=== PATIENT | male | born 1965 | race Caucasian/White ===

== ENCOUNTER → 2016-11-03 | Outpatient (CLI) | payer BC ==
[2016-11-03 12:26] LABS: ALT 54 U/L (21-72); AST 33 U/L (17-59); Alkaline Phosphatase 98 U/L (38-126); Anion Gap 11 mmol/L; Blood Urea Nitrogen 20 mg/dL (9-20); Calcium 9.5 mg/dL (8.4-10.2); Carbon Dioxide 26 mmol/L (22-30); Chloride 108 mmol/L (98-107); Cholesterol 172 mg/dL (<200); Glucose 98 mg/dL (74-99); HDL Cholesterol 36 mg/dL (40-60); Non-African American GFR(MDRD) >60 (>60 ml/min/1.73 sqM); Potassium 4.5 mmol/L (3.5-5.1); Sodium 145 mmol/L (137-145); Total Bilirubin 0.6 mg/dL (0.2-1.3); Total Protein 7.3 g/dL (6.3-8.2); Triglycerides 158 mg/dL (<150)
== END | disposition home or self-care (01) ==
LOC: LABMAIN 09:01
PROVIDERS: ATTEND Family Medicine
DX: Z00.00 Encounter for general adult medical examination without abnormal findings (principal)
CPT/HCPCS: 36415; 80053; 80061

== ENCOUNTER → 2017-01-16 | Outpatient (CLI) | payer BC ==
--- NOTE | 2017-01-16 17:26 | CONS ---
CONSULTATION DATE OF SERVICE: 01/07/2017. A 51-year-old gentleman who has been evaluated in the sleep center to for obstructive sleep apnea-hypopnea syndrome. HISTORY OF PRESENT ILLNESS/SLEEP WAKE EVALUATION: The patient has been diagnosed with obstructive sleep apnea about 14 years ago. He was started on treatment with CPAP and he stopped using CPAP equipment about 7 years ago. At the present time, his sleep schedule on working days from around 9:00 p.m. to 4:00 a.m. and on weekends from around 10:00 to 11:00 p.m. to 5:00 to 7:00 a.m. Usually no problems with a falling asleep. He has TV set in bedroom. He snores, has witnessed episodes of stopped breathing during the sleep. He wakes up from sleep 2 times with nocturia. He has some kind of jump movements in sleep. Patient does not remember his dreams so it is probably not related to the out of dream movements. In the morning he wakes up tired. [place] Sleepiness Scale significantly increased to 14. PAST MEDICAL HISTORY: Positive for tinnitus, hypertension, acid reflux, shoulder arthritis. PAST SURGICAL HISTORY: Tonsillectomy in 1969. SOCIAL HISTORY: Positive for smoking for around 20 pack years, quit about 11 years ago. Alcohol consumption none at the present time. REVIEW OF SYSTEMS: Awakenings from sleep, sleepiness during the day. No fevers No double vision. No recent chest pain. No shortness of breath. No abdominal pain. No bleeding episodes. No blood in urine. No seizure episodes. FAMILY HISTORY: Angina, heart problems, stroke, arthritis, lung problems, emphysema, liver problems. PHYSICAL EXAM: A 51-year-old gentleman without distress. BP 157/92, HR 82, RR 16, height 6 inches 2, weight 278, BMI 35.5. Neck 18-1/2 inches in circumference. Temperature 98.1, oxygen saturation at room air 96%. HEENT: PERRLA, EOMI. Evaluation of oropharynx showed extremely low position of soft palate. NECK: Supple. No JVD. Thyroid is not palpable. LUNGS: clear to percussion and to auscultation. Good air exchange. No wheezing or rhonchi. HEART: S1, S2 regular. No murmurs, gallops or rubs. ABDOMEN: Abdomen is obese. Soft and nontender. Bowel sounds are present. No organomegaly appreciated. EXTREMITIES: No cyanosis or clubbing. PERFORMING ARTS TECHNICIANS: Awake, alert and oriented x3. Cranial nerves II through VII intact. There is no fasciculation or atrophy noted. No focal deficits observed. IMPRESSION: 1. Snoring, witnessed episodes of stopped breathing during sleep, history of obstructive sleep apnea-hypopnea syndrome in the past, low position of soft palate big neck, excessive sleepiness, obstructive sleep apnea-hypopnea syndrome. 2. Tinnitus. 3. Hypertension. 4. Acid reflux. 5. Shoulder arthritis. 6. Status post tonsillectomy. 7. Obesity, BMI 35.5. PLAN: 1. Polysomnography for evaluation of patient's breathing during sleep. 2. CPAP/BiPAP titration if sleep study confirms obstructive sleep apnea-hypopnea syndrome. 3. Preferable position during sleep on the side. 4. No driving if patient feels any sleepiness. Patient is aware of civil and criminal liability for unsafe driving. 5. I will see the patient for follow-up visit to explain results of the testing and following plan. Thank you very much for allowing me to participate in the management of your patient. Sincerely, Stanley Cardoso MD, PhD, FAASM Diplomat of [place] Board [employer], Sleep Medicine Board by [place] [employer] Specialties [employer] Board of [employer] MMODL / IJN: [id number] /
== END | disposition home or self-care (01) ==
LOC: SLEEP 15:51
PROVIDERS: ATTEND Internal Medicine
DX: G47.33 Obstructive sleep apnea (adult) (pediatric) (principal); I10 Essential (primary) hypertension; H93.19 Tinnitus, unspecified ear; K21.9 Gastro-esophageal reflux disease without esophagitis; M19.019 Primary osteoarthritis, unspecified shoulder; E66.9 Obesity, unspecified; Z68.35 Body mass index [BMI] 35.0-35.9, adult; Z90.89 Acquired absence of other organs; Z87.891 Personal history of nicotine dependence
CPT/HCPCS: 99211

== ENCOUNTER → 2017-05-15 | Outpatient (CLI) | payer BC ==
--- NOTE | 2017-05-15 18:06 | PN ---
PROGRESS NOTE DATE OF SERVICE: 05/15/17 52-year-old gentleman who has been followed in Sleep Center for treatment of obstructive sleep apnea-hypopnea syndrome. Recently patient had home sleep apnea test and CPAP titration and I discussed results of the sleep studies with patient in detail. He has moderate obstructive sleep apnea, which is close to severe range. Subsequently, he was started on treatment with CPAP. He is able to use his equipment every night without significant problems at the present time. He feels better with the machine with relationship to his sleep and feeling during the day. No snoring at night. His likes machine. I checked patient's CPAP unit. Usage is 30/30 nights for more than 4 hours. Average usage is 7.1 hour. Pressure is 11 cm of water. RAMP is 30 minutes. Leak is 18 L/minute which is acceptable. Apnea-hypopnea index for the month is 4.1, which is acceptable range. [place] Sleepiness Scale today is 12. MEDICATIONS ARE: Omeprazole, amlodipine, ibuprofen. PHYSICAL EXAM: Patient in no distress. BP 144/93, HR 83, RR 16, weight 218.6, temp 97.9, oxygen saturation on room air 95%. Oropharynx extremely low position of soft palate. Mallampati 4. Abdomen slightly obese. Neck Supple, no JVD. Thyroid is not palpable. LUNGS Clear to percussion and to auscultation. Good air exchange. No wheezing or rhonchi. HEART S1, S2 regular. No murmurs, gallops, or rubs. ABDOMEN: Obese. Soft and nontender. Bowel sounds are present. No organomegaly appreciated. EXTREMITIES No clubbing or cyanosis. COMMERCIAL GREEN BUILDING DESIGNER Awake, alert, and oriented X3. Cranial nerves 2 to 7 intact. There is no fasciculation or atrophy. noted. No focal deficits observed. IMPRESSION: 1. Moderate close to severe obstructive sleep apnea-hypopnea syndrome; apnea-hypopnea index 28 with oxygen desaturation to 78%, mostly on control with CPAP at 11 cm of water. Patient demonstrated 100% compliance with treatment benefitting from treatment. 2. Hypertension. 3. History of tinnitus. 4. Acid reflux. 5. Shoulder arthritis. 6. Status post tonsillectomy. 7. Obesity. PLAN: 1. Patient will continue to use CPAP equipment every night. 2. Losing weight. 3. Sleep hygiene with regular time in bed for at least 8 hours. 4. No driving if feeling sleepiness. 5. Follow-up visit in 10 months or earlier if the patient has any problems. She will be 1 year since the patient had a sleep study. Thank you very much for allowing me to participate in management of your patient. Sincerely, Stanley Cardoso MD, PhD, FAASM Diplomat of [employer] [employer] Specialties [employer] Board of Internal Medicine Customer Care Consultant of [facility] [place] MMODL / BON: [id number] /
== END | disposition home or self-care (01) ==
LOC: SLEEP 16:12
PROVIDERS: ATTEND Internal Medicine
DX: G47.33 Obstructive sleep apnea (adult) (pediatric) (principal); I10 Essential (primary) hypertension; K21.9 Gastro-esophageal reflux disease without esophagitis; E66.9 Obesity, unspecified; M19.019 Primary osteoarthritis, unspecified shoulder; Z90.89 Acquired absence of other organs; Z86.69 Personal history of other diseases of the nervous system and sense organs; Z79.1 Long term (current) use of non-steroidal anti-inflammatories (NSAID); Z79.899 Other long term (current) drug therapy; Z99.89 Dependence on other enabling machines and devices

== ENCOUNTER → 2018-05-21 | Outpatient (CLI) | payer BC ==
--- NOTE | 2018-05-21 21:48 | PN ---
PROGRESS NOTE DATE OF SERVICE: 05/21/2018 This patient is a 53-year-old gentleman who has been followed in Sleep Center for treatment of obstructive sleep apnea-hypopnea syndrome. The patient successfully continues to use his CPAP equipment every night for the whole night. About 4 months ago, the patient had an episode of chest pain. He was evaluated in the hospital, but cardiac evaluation was negative at that time. No episodes of chest pain since that time. I checked the patient's CPAP unit. CPAP pressure is 11 cm of water. Usage is every night for more than 4 hours. Average usage is 6.7 hours. Leak is 14 L/minute, which is within normal range. Apnea-hypopnea index is only 1.7, which is absolutely perfect. [place] Sleepiness Scale is still slightly increased at 11. MEDICATIONS: 1. Baby aspirin. 2. Toprol. 3. Amlodipine. 4. EpiPen. PHYSICAL EXAMINATION: GENERAL: A pleasant patient in no distress. VITAL SIGNS: BP 144/81, HR 75, RR 14, height 6 feet 2 inches, weight 284.6, body mass index 36.4. Temperature 98.1, oxygen saturation at room air 96%. HEENT: PERRLA, EOMI. Evaluation of oropharynx showed tongue protrudes midline. Low position of soft palate. Mallampati IV. NECK: Supple. No JVD. Thyroid is not palpable. LUNGS: Clear to percussion and to auscultation. Good air exchange. No wheezing or rhonchi. HEART: S1, S2 regular. No murmurs, gallops or rubs. ABDOMEN: Obese. EXTREMITIES: No clubbing or cyanosis. FOLDER HAND: Awake, alert, and oriented X3. Cranial nerves 2 to 7 intact. There is no fasciculation or atrophy. noted. No focal deficits observed. IMPRESSION: 1. Obstructive sleep apnea-hypopnea syndrome. The patient has demonstrated great compliance with treatment, benefitting from treatment. 2. Hypertension. 3. History of episode of chest pain with negative cardiac workup several months ago. 4. History of tinnitus. 5. Acid reflux. 6. Shoulder arthritis. 7. Status post tonsillectomy. 8. Obesity. PLAN: 1. Patient will continue to use CPAP equipment every night for the whole night. 2. Losing weight. 3. Sleep hygiene with regular time in bed for at least 8 hours. 4. No driving if feeling any sleepiness. 5. We will maintain prescriptions for all necessary CPAP supplies, including full-face mask, tubes, filters. 6. Follow-up visit in one year, or earlier if patient has any problems. Thank you very much for allowing me to participate in the management of your patient. Sincerely, Stanley Cardoso MD, PhD, FAASM Diplomat of [employer] Specialties [employer] Board of Internal Medicine Geography Instructor of [facility] [place] MMPILARL / BON: [id number] /
== END | disposition home or self-care (01) ==
LOC: SLEEP 16:09
PROVIDERS: ATTEND Internal Medicine
DX: G47.33 Obstructive sleep apnea (adult) (pediatric) (principal); I10 Essential (primary) hypertension; K21.9 Gastro-esophageal reflux disease without esophagitis; M13.819 Other specified arthritis, unspecified shoulder; E66.9 Obesity, unspecified; Z68.36 Body mass index [BMI] 36.0-36.9, adult; Z86.69 Personal history of other diseases of the nervous system and sense organs; Z90.89 Acquired absence of other organs; Z79.82 Long term (current) use of aspirin; Z99.89 Dependence on other enabling machines and devices

== ENCOUNTER → 2019-04-15 | Outpatient (CLI) | payer BC ==
--- NOTE | 2019-04-15 17:06 | PN ---
PROGRESS NOTE DATE OF SERVICE: 04/15/2019 This patient is a 54-year-old gentleman who has been followed in Sleep Center for treatment of obstructive sleep apnea-hypopnea syndrome. Patient is successfully continuing to use his CPAP equipment. Last time I saw him was about one year ago. He is using the equipment every night for the whole night. No snoring with the machine. [place] Sleepiness Scale today is slightly increased at 12. I checked his CPAP unit. CPAP pressure is 11 cm of water. Usage is 29/30 nights for more for more than 4 hours for the last month. Average usage is 7.6 hours per night. Leak is 7 L/minute, which is perfect. Apnea-hypopnea index is 3.1, which is absolutely normal. MEDICATIONS: Toprol, baby aspirin, amlodipine, EpiPen. PHYSICAL EXAMINATION: GENERAL: A pleasant patient in no distress. VITAL SIGNS: BP 129/77, HR 78, RR 16. Height 6 feet 2 inches. Weight 287, which is 3 pounds more than during the last visit about one year ago, BMI 36.8, temperature 98.5, oxygen saturation at room air 97%. HEENT: PERRLA, EOMI. Evaluation of oropharynx showed tongue protrudes midline. Extremely low position of soft palate. Mallampati IV. NECK: Supple. No JVD. Thyroid is not palpable. LUNGS: Clear to percussion and to auscultation. Good air exchange. No wheezing or rhonchi. HEART: S1, S2 regular. No murmurs, gallops or rubs. ABDOMEN: Obese. EXTREMITIES: No clubbing or cyanosis. BOX WORKER: Awake, alert, and oriented X3. Cranial nerves 2 to 7 intact. There is no fasciculation or atrophy. noted. No focal deficits observed. IMPRESSION: 1. Obstructive sleep apnea-hypopnea syndrome in moderate, close to severe range, with apnea/hypopnea index 28.0 and oxygen desaturation to 78%, subsequently under full control with CPAP therapy. The patient demonstrated practically 100% compliance with treatment, benefitting from treatment. 2. Hypertension. 3. History of tinnitus. 4. Acid reflux. 5. Shoulder arthritis. 6. Status post tonsillectomy. 7. Obesity. PLAN: 1. The patient will continue to use CPAP equipment every night for the whole night. 2. Watching weight. 3. Sleep hygiene with regular time in bed for at least 7-1/2 to 8 hours. 4. No driving if feeling any sleepiness. 5. I will maintain all necessary prescriptions for CPAP supplies, including mask, tube, filters. Thank you very much for allowing me to participate in the management of your patient. Sincerely, Stanley Cardoso MD, PhD, FAASM Diplomat of [place] Board of Medical Specialties [employer] Board of Internal Medicine Liquefaction Plant Operator of [facility] [place] MMODL / BON: [id number] /
== END | disposition home or self-care (01) ==
LOC: SLEEP 16:04
PROVIDERS: ATTEND Internal Medicine
DX: G47.33 Obstructive sleep apnea (adult) (pediatric) (principal); I10 Essential (primary) hypertension; K21.9 Gastro-esophageal reflux disease without esophagitis; E66.9 Obesity, unspecified; M19.019 Primary osteoarthritis, unspecified shoulder; Z87.2 Personal history of diseases of the skin and subcutaneous tissue; Z99.89 Dependence on other enabling machines and devices; Z79.891 Long term (current) use of opiate analgesic; Z79.899 Other long term (current) drug therapy; Z79.82 Long term (current) use of aspirin

== ENCOUNTER → 2020-03-09 | Outpatient (CLI) | payer BC ==
--- NOTE | 2020-03-09 17:28 | SFUN ---
SLEEP CENTER FOLLOW UP NOTE DATE OF SERVICE: 03/09/2020 This patient is a 55-year-old gentleman has been followed in Sleep Center for treatment of obstructive sleep apnea-hypopnea syndrome. The patient successfully continues to use his CPAP machine every night, but sometimes during the night he snores, according to his . [place] Sleepiness Scale today is 7. I checked the patient's CPAP unit. CPAP pressure is 11 cm of water. Usage is 30/30 nights for more than 4 hours. Average usage is 8.7 hours per night. Leak is 10 L/minute. Apnea-hypopnea index is only 0.7, which is absolutely perfect. MEDICATIONS: 1. Amlodipine 5/40 mg once a day. 2. Metoprolol 25 mg once a day. 3. Aspirin 81 mg once a day. 4. Nexium 40 mg once a day. 5. Motrin 800 mg on p.r.n. basis. PHYSICAL EXAMINATION: GENERAL: A pleasant patient in no distress. VITAL SIGNS: BP 154/87, HR 85, RR 15, height 6 feet 2 inches, weight 289.6, temperature 98.5, oxygen saturation at room air 96%. BMI 37.1. HEENT: MEME, EOMI. Evaluation of oropharynx showed tongue protrudes midline. Extremely low position of soft palate. Mallampati IV. NECK: Supple. No JVD. Thyroid is not palpable. LUNGS: Clear to percussion and to auscultation. Good air exchange. No wheezing or rhonchi. HEART: S1, S2 regular. No murmurs, gallops or rubs. ABDOMEN: Obese. EXTREMITIES: No clubbing or cyanosis. PAYMENT REP: Awake, alert, and oriented X3. Cranial nerves 2 to 7 intact. There is no fasciculation or atrophy. noted. No focal deficits observed. IMPRESSION: 1. Obstructive sleep apnea-hypopnea syndrome. Patient demonstrated 100% compliance with treatment, documented 100% compliance with treatment, benefitting from treatment. 2. Hypertension. 3. History of tinnitus. 4. Acid reflux. 5. History of shoulder arthritis. 6. Obesity. 7. Status post tonsillectomy. PLAN: 1. I changed regimen of the machine to Auto with range of pressure from 9 to 14 cm of water. 2. Patient will continue to use PAP equipment every night for the whole night. 3. Sleep hygiene with regular time in bed for at least 7-1/2 to 8 hours. 4. Precautions related to driving. No driving if feeling sleepiness. 5. I will maintain all necessary prescription for PAP supplies including mask, tube, filters. 6. Watching weight. 7. No driving if feeling sleepiness. 8. Follow-up visit in 6 months or earlier if patient has any problems. Thank you very much for allowing me to participate in the management of your patient. Sincerely, Stanley Cardoso MD, PhD, FAASM Diplomat of [place] Board of [employer] Specialties [place] Board of Internal Medicine Data Entry Associate of [facility] [place] MMODL / IJN: [id number] /
== END | disposition home or self-care (01) ==
LOC: SLEEP 15:46
PROVIDERS: ATTEND Internal Medicine
DX: G47.33 Obstructive sleep apnea (adult) (pediatric) (principal); I10 Essential (primary) hypertension; K21.9 Gastro-esophageal reflux disease without esophagitis; E66.9 Obesity, unspecified; Z98.890 Other specified postprocedural states; Z87.39 Personal history of other diseases of the musculoskeletal system and connective tissue; Z99.89 Dependence on other enabling machines and devices; Z79.899 Other long term (current) drug therapy; Z79.891 Long term (current) use of opiate analgesic; Z79.82 Long term (current) use of aspirin; Z87.2 Personal history of diseases of the skin and subcutaneous tissue

== ENCOUNTER → 2020-09-13 | Outpatient (CLI) | payer BC ==
--- NOTE | 2020-09-14 08:46 | SFUN ---
SLEEP CENTER FOLLOW UP NOTE DATE OF SERVICE: 09/13/2020 INTERVAL HISTORY: A 55-year-old gentleman who has been followed in Sleep Center for treatment of obstructive sleep apnea-hypopnea syndrome. The patient continues to use his CPAP equipment every night for the whole night. No snoring with the machine. [place] Sleepiness Scale today is 6, which is in normal range. I checked his CPAP unit. Pressure in the machine in the range 9-14 cm of water. Average 13.1 cm of water, usage 30/30 nights for more than 4 hours with average usage 7.3 hours per night. Leak is 7 L/minute which is very mild. Apnea-hypopnea index is only 1.3, which is totally normal. MEDICATIONS: Ibuprofen 800 mg on a p.r.n. basis, metoprolol 25 mg once a day, omeprazole, amlodipine 5/40 mg once a day, aspirin 81 mg once a day. PHYSICAL EXAMINATION: GENERAL: Patient in no distress. VITAL SIGNS: BP 150/90, HR 84, RR 16, height 6 feet 2 inches, weight 291.4 pounds, body mass index 37.3, temperature 98.4, oxygen saturation at room air 95%. HEENT: PERRLA, EOMI, evaluation of oropharynx showed tongue protrudes midline. Extremely low position of soft palate. Mallampati 4. NECK: Supple, no JVD. Thyroid is not palpable. LUNGS: Clear to percussion and to auscultation. Good air exchange. No wheezing or rhonchi. HEART: S1, S2 regular. No murmurs, gallops, or rubs. ABDOMEN: Obese, soft and nontender. Bowel sounds are present. No organomegaly appreciated. EXTREMITIES: No clubbing or cyanosis. NUCLEAR CRITICALITY SAFETY ENGINEER: Awake, alert, and oriented X3. Cranial nerves 2 to 7 intact. There is no fasciculation or atrophy. noted. No focal deficits observed. IMPRESSION: 1. Obstructive sleep apnea-hypopnea syndrome. The CPAP unit has been checked. The usage is 100% of the time for more than 4 hours with average is 7.3 hours per night with compliance with treatment, benefitting from treatment. 2. Hypertension. 3. History of tinnitus. 4. Acid reflux. 5. Obesity. 6. History of shoulder arthritis. 7. Status post tonsillectomy. PLAN: 1. Patient will continue to use PAP equipment every night for the whole night. 2. Sleep hygiene with regular time in bed for at least 7-1/2 to 8 hours. 3. Precautions related to driving. No driving if feeling sleepiness. 4. I will maintain all necessary prescription for PAP supplies including mask, tube, filters. 5. Watching weight. 6. Follow-up visit in 6 months or earlier if patient has any problems. Thank you very much for allowing me to participate in the management of your patient. Sincerely, Stanley Cardoso MD, PhD, FAASM Diplomat of [place] Board of Medical Specialties Iceland[employer] Board of Internal Medicine Skein Yarn Dyer Helper of [facility] [place] MMODL / IJN: [id number] /
== END ==
LOC: SLEEP 16:28
PROVIDERS: ATTEND Internal Medicine
DX: G47.33 Obstructive sleep apnea (adult) (pediatric) (principal); I10 Essential (primary) hypertension; K21.9 Gastro-esophageal reflux disease without esophagitis; E66.9 Obesity, unspecified; M19.019 Primary osteoarthritis, unspecified shoulder; Z86.69 Personal history of other diseases of the nervous system and sense organs; Z90.89 Acquired absence of other organs; Z79.1 Long term (current) use of non-steroidal anti-inflammatories (NSAID); Z79.899 Other long term (current) drug therapy; Z68.37 Body mass index [BMI] 37.0-37.9, adult

== ENCOUNTER → 2021-03-08 | Outpatient (CLI) | payer BC ==
--- NOTE | 2021-03-09 06:26 | SFUN ---
SLEEP CENTER FOLLOW UP NOTE DATE OF SERVICE: 03/08/2021. 56-year-old gentleman has been followed in Sleep Center for treatment of obstructive sleep apnea-hypopnea syndrome. The patient continues to use his CPAP equipment every night without significant problems. Getting his supplies in time. [place] Sleepiness Scale today is 6, which is normal. I checked his CPAP unit. Range of the pressure 9-14 cm of water. Average pressure 12.2 cm of water. Usage is 30/30 nights for more than 4 hours. Average is 7.5 hours per night. Leak is 8 L/minute only. Apnea-hypopnea index is 1.5 which is perfect. MEDICATIONS: Ibuprofen 800 mg on p.r.n., metoprolol 25 mg once a day, omeprazole, amlodipine once a day, aspirin 81 mg once a day. PHYSICAL EXAMINATION: GENERAL: Patient in no distress. BP 161/81, HR 71, RR 16, height 6 foot 2, weight 276 lbs, body mass index 35.4, temperature 98.3, oxygen saturation at room air 98%. Oropharynx: Extremely low position of soft palate, Mallampati 4. NECK: Supple, no JVD. Thyroid is not palpable. LUNGS: Clear to percussion and to auscultation. Good air exchange. No wheezing or rhonchi. HEART: S1, S2 regular. No murmurs, gallops, or rubs. ABDOMEN: Slightly obese. Soft and nontender. Bowel sounds are present. No organomegaly appreciated. EXTREMITIES: No clubbing or cyanosis. PAYABLE PROCESSOR: Awake, alert, and oriented X3. Cranial nerves 2 to 7 intact. There is no fasciculation or atrophy. noted. No focal deficits observed. IMPRESSION: 1. Obstructive sleep apnea-hypopnea syndrome. The patient demonstrated great compliance with treatment benefitting from treatment. Normal respiration on CPAP. 2. Hypertension. 3. History of tinnitus. 4. Acid reflux. 5. Obesity. 6. History of shoulder arthritis. 7. Status post tonsillectomy. PLAN: 1. Patient will continue to use PAP equipment every night for the whole night. 2. Sleep hygiene with regular time in bed for at least 7-1/2 to 8 hours. 3. Precautions related to driving. No driving if feeling sleepiness. 4. I will maintain all necessary prescription for PAP supplies including mask, tube, filters. 5. Watching weight. 6. Follow-up visit in 6 months or earlier if patient has any problems. Thank you very much for allowing me to participate in management of your patient. Sincerely, Stanley Cardoso MD, PhD, FAASM Diplomat of [place] [employer] Specialties Sleep Medicine Board of [place] Board of Internal Medicine Water Truck Driver of [facility] [place] MMSRIDHAR / VILMA: [id number] /
== END ==
LOC: SLEEP 15:56
PROVIDERS: ATTEND Internal Medicine
DX: G47.33 Obstructive sleep apnea (adult) (pediatric) (principal); I10 Essential (primary) hypertension; K21.9 Gastro-esophageal reflux disease without esophagitis; E66.9 Obesity, unspecified; Z90.09 Acquired absence of other part of head and neck; Z86.69 Personal history of other diseases of the nervous system and sense organs; Z87.39 Personal history of other diseases of the musculoskeletal system and connective tissue; Z99.89 Dependence on other enabling machines and devices; Z68.35 Body mass index [BMI] 35.0-35.9, adult; Z79.899 Other long term (current) drug therapy

== ENCOUNTER → 2022-03-07 | Outpatient (CLI) | payer BC ==
--- NOTE | 2022-03-07 15:48 | P.PN ---
Subjective DATE: 03/07/2022 FOLLOW UP VISIT. Patient with obstructive sleep apnea hypopnea syndrome return to sleep center for follow-up visit. Information from previous visit have been reviewed. Patient is using PAP equipment every night for the whole night, getting PAP supplies in time. The patient does not have significant problems with the mask, PAP unit and humidification. [place] sleepiness scale is 3, which is normal. I checked information from PAP unit. PAP unit pressure 9-14, average 12.9 cm H2O. Usage is 100 % for more then 4 hours, average 7.4 hours per night. Leak is 7 l/m, which is in acceptable range. Apnea Hypopnea Index is 2.3, which is normal. MEDICATIONS:1. Amlodipine 2. Aspirin 3. Metoprolol 25 mg twice a day 4. Omeprazole once a day 5. Motrin 800 mg as needed During physical exam: GENERAL: A pleasant patient without any distress. VITAL SIGNS: BP 126/74, HR 75, RR 16 , weight 251.0, patient lost about 25 pounds since previous visit, temperature 97.4, oxygen saturation at room air 97 % . HEENT: PERRLA, EOMI.low position of soft palate, Mallapati 4 . NECK: Supple. No JVD. LUNGS: Clear to percussion and to auscultation. Good air exchange. No wheezing or rhonchi. HEART: S1, S2 regular. ABDOMEN: Soft and nontender. Slightly obese EXTREMITIES: No clubbing or cyanosis. CANDY SEPARATOR ENROBING: Awake, alert, and oriented x3. No focal deficit. Impressions: 1. Obstructive sleep apnea-hypopnea syndrome. Patient demonstrated great compliance with treatment, benefiting from treatment. 2. Hypertension. 3. Tinnitus. 4. Acid reflux. 5. Obesity. 6. History of shoulder arthritis. 7. Status post tonsillectomy. Plan: 1. Continue using PAP equipment every night for the whole night. 2. To change air filter at least 1-2 times per month. 3. PAP unit should stay lower then position of the head. 4. Advised patient to remove all remaining water from humidifier canister daily and make it dry after each usage. Refill canister with fresh distilled water before each usage. 5. Sleep hygiene with regular time in bed for at least 8 hours. 6. Precautions related to driving. No driving if feel any sleepiness. 7. I will maintain prescription for PAP supplies including mask, tube, filters. 8. Follow up visit in 6 months or earlier if patient has any problems. 9. Watching and continue losing weight. Thank you very much for allowing me to participate in the management of your patient. Stanley Cardoso MD, PhD, FAASM. Diplomat of [employer] Board [employer] Medicine, Sleep Medicine Board by [employer] Board of [employer] Medicine Mincing Machine Operator of [facility] [place]
== END ==
LOC: SLEEP 15:12
PROVIDERS: ATTEND Internal Medicine
DX: G47.33 Obstructive sleep apnea (adult) (pediatric) (principal); I10 Essential (primary) hypertension; K21.9 Gastro-esophageal reflux disease without esophagitis; E66.9 Obesity, unspecified; Z79.899 Other long term (current) drug therapy; Z79.82 Long term (current) use of aspirin; Z90.89 Acquired absence of other organs; Z87.39 Personal history of other diseases of the musculoskeletal system and connective tissue; Z99.89 Dependence on other enabling machines and devices; H93.19 Tinnitus, unspecified ear
CPT/HCPCS: 99212

== ENCOUNTER → 2022-09-18 | Outpatient (CLI) | payer BC ==
--- NOTE | 2022-09-18 16:24 | P.PN ---
Subjective DATE: 09/18/2022 FOLLOW UP VISIT. Patient with obstructive sleep apnea hypopnea syndrome return to sleep center for follow-up visit. Information from previous visit have been reviewed. Patient is using PAP equipment every night for the whole night, getting PAP supplies in time. The patient does not have significant problems with the mask, PAP unit and humidification. [place] sleepiness scale is 4, which is normal. I checked information from PAP unit. PAP unit pressure 9-14, average 12.5 cm H2O. Usage is 100 % for more then 4 hours, average 6.9 hours per night. Leak is 10 l/m, which is in acceptable range. Apnea Hypopnea Index is 1.6, which is normal. MEDICATIONS:1. Metoprolol 25 mg twice a day 2. Omeprazole 3. Amlodipine 4. Aspirin 5. [] 6. [] 7. [] 8. [] During physical exam: GENERAL: A pleasant patient without any distress. VITAL SIGNS: BP 141/77, HR 85, RR 16, weight 263.4, temperature 98.3, oxygen saturation at room air 97 % . HEENT: PERRLA, EOMI.low position of soft palate, Mallapati 4 . NECK: Supple. No JVD. LUNGS: Clear to percussion and to auscultation. Good air exchange. No wheezing or rhonchi. HEART: S1, S2 regular. ABDOMEN: Soft and nontender.[] EXTREMITIES: No clubbing or cyanosis. POWER HAIR CLIPPER: Awake, alert, and oriented x3. No focal deficit. Impressions: 1. Obstructive sleep apnea-hypopnea syndrome. Patient demonstrated great compliance with treatment, benefiting from treatment. 2. Hypertension. 3. Acid reflux. 4. Mild obesity, BMI 34.6, patient increased his weight on 12 pounds comparing to the previous visit. 5. History of shoulder arthritis. 6. History of tinnitus. 7. Status post tonsillectomy. Plan: 1. Continue using PAP equipment every night for the whole night. 2. To change air filter at least 1-2 times per month. 3. PAP unit should stay lower then position of the head. 4. Advised patient to remove all remaining water from humidifier canister daily and make it dry after each usage. Refill canister with fresh distilled water before each usage. 5. Sleep hygiene with regular time in bed for at least 8 hours. 6. Precautions related to driving. No driving if feel any sleepiness. 7. I will maintain prescription for PAP supplies including mask, tube, filters. 8. Watching and losing weight. 9. Follow up visit in 6 months or earlier if patient has any problems. Thank you very much for allowing me to participate in the management of your patient. Stanley Cardoso MD, PhD, FAASM. Diplomat of [place], Sleep Medicine Board by [place] [employer] Aerospace Engineer Officer [employer] of [facility]
== END ==
LOC: 3 N SLEEP 15:48
PROVIDERS: ATTEND Internal Medicine
DX: G47.33 Obstructive sleep apnea (adult) (pediatric) (principal); I10 Essential (primary) hypertension; K21.9 Gastro-esophageal reflux disease without esophagitis; E66.9 Obesity, unspecified; Z68.34 Body mass index [BMI] 34.0-34.9, adult; Z99.89 Dependence on other enabling machines and devices; Z87.39 Personal history of other diseases of the musculoskeletal system and connective tissue; Z86.69 Personal history of other diseases of the nervous system and sense organs; Z98.890 Other specified postprocedural states; Z79.899 Other long term (current) drug therapy
CPT/HCPCS: 99212

== ENCOUNTER → 2023-04-16 | Outpatient (CLI) | payer BC ==
--- NOTE | 2023-04-16 15:47 | P.PN ---
Subjective DATE: 04/16/2023 FOLLOW UP VISIT. Patient with obstructive sleep apnea hypopnea syndrome return to sleep center for follow-up visit. Information from previous visit have been reviewed. Patient is using PAP equipment every night for the whole night, getting PAP supplies in time. The patient does not have significant problems with the mask, PAP unit and humidification. [place] sleepiness scale is 3. I checked information from PAP unit. PAP unit pressure 9-14, average 12.2 cm H2O. Usage is 100 % for more then 4 hours, average 7.6 hours per night. Leak is 14 l/m, which is in acceptable range. Apnea Hypopnea Index is 1.3, which is normal. MEDICATIONS:1. Hydrochlorothiazide 12.5 mg once a day 2. Metoprolol 50 mg once a day 3. Amlodipine/benazepril 50-20 mg twice a day 4. Aspirin 81 mg once a day 5. Esomeprazole 40 mg once a day During physical exam: GENERAL: A pleasant patient without any distress. VITAL SIGNS: BP 130/83, HR 84, RR 12 , weight to 84.2, temperature 98.1, oxygen saturation at room air 96 % . HEENT: PERRLA, EOMI.low position of soft palate, Mallapati 4 . NECK: Supple. No JVD. LUNGS: Clear to percussion and to auscultation. Good air exchange. No wheezing or rhonchi. HEART: S1, S2 regular. ABDOMEN: Soft and nontender.[] EXTREMITIES: No clubbing or cyanosis. PURCHASING BUYER: Awake, alert, and oriented x3. No focal deficit. Impressions: 1. Obstructive sleep apnea-hypopnea syndrome. Patient demonstrated great compliance with treatment, benefiting from treatment. 2. Obesity, BMI 35.4, patient increased weight and 21 pounds comparing with previous visit. 3. Hypertension. 4. Acid reflux. 5. Tinnitus. 6. History of shoulder arthritis. 7. Status post tonsillectomy. Plan: 1. Continue using PAP equipment every night for the whole night. 2. To change air filter at least 1-2 times per month. 3. PAP unit should stay lower then position of the head. 4. Advised patient to remove all remaining water from humidifier canister daily and make it dry after each usage. Refill canister with fresh distilled water before each usage. 5. Sleep hygiene with regular time in bed for at least 8 hours. 6. Precautions related to driving. No driving if feel any sleepiness. 7. I will maintain prescription for PAP supplies including mask, tube, filters. 8. Follow up visit in 6 months or earlier if patient has any problems. 9. Watching and losing weight. Thank you very much for allowing me to participate in the management of your patient. Stanley Cardoso MD, PhD, FAASM. Diplomat of [place] [employer], Sleep Medicine Board by [employer] Medical Records Administrator of [facility] [place]
== END ==
LOC: 3 N SLEEP 14:53
PROVIDERS: ATTEND Internal Medicine
DX: G47.33 Obstructive sleep apnea (adult) (pediatric) (principal); E66.9 Obesity, unspecified; I10 Essential (primary) hypertension; K21.9 Gastro-esophageal reflux disease without esophagitis; H93.19 Tinnitus, unspecified ear; Z68.35 Body mass index [BMI] 35.0-35.9, adult; Z98.890 Other specified postprocedural states; Z87.39 Personal history of other diseases of the musculoskeletal system and connective tissue; Z90.89 Acquired absence of other organs; Z99.89 Dependence on other enabling machines and devices; Z79.899 Other long term (current) drug therapy; Z79.82 Long term (current) use of aspirin
CPT/HCPCS: 99212

== ENCOUNTER 2023-10-11 14:17 | Observation (INO) | payer BC ==
--- NOTE | 2023-10-11 15:23 | ED ---
Neuro HPI - General Chief Complaint: Neuro Symptoms/Deficit Stated Complaint: Dizziness Time Seen by Provider: 10/11/23 14:49 Source: patient, RN notes reviewed, old records reviewed Mode of arrival: wheelchair Limitations: no limitations - History of Present Illness Is the patient presenting with stroke symptoms?: Yes -: minutes(s) Initial Comments: This is a 58-year-old male to the ER for evaluation of room spinning near syncopal event was occurring prior to arrival. Patient was shopping when he f elt a snap in his neck and symptoms began, they have been persistent at home and patient presents to the ER for evaluation of possible stroke severe neck pain severe headache Location: ataxia History of same: No Place: home Severity: severe Quality: improving Improves With: none Worsens With: none Context: sudden onset Associated Symptoms: vertigo Treatments Prior to Arrival: none - Related Data Home Medications: Home Medications Medication Instructions Recorded Confirmed Ammonium Lactate Lotion 1 applic TOPICAL DAILY PRN 10/11/23 10/11/23 [Lac-Hydrin 12% Lotion] Aspirin EC [Ecotrin Low Dose] 81 mg PO HS 10/11/23 10/11/23 Esomeprazole Magnesium [NexIUM] 40 mg PO DAILY 10/11/23 10/11/23 Meloxicam [Mobic] 7.5 mg PO DAILY 10/11/23 10/11/23 Metoprolol Succinate (ER) [Toprol 50 mg PO DAILY 10/11/23 10/11/23 XL] amLODIPine BESYLATE/BENAZEPRIL 1 cap PO DAILY 10/11/23 10/11/23 [Lotrel 5-20 mg Capsule] hydroCHLOROthiazide 12.5 mg PO DAILY 10/11/23 10/11/23 Previous Rx's Medication Instructions Recorded Atorvastatin [Lipitor] 20 mg PO HS 30 Days #30 tab 10/13/23 Clopidogrel [Plavix] 75 mg PO DAILY 21 Days #21 tablet 10/13/23 Allergies/Adverse Reactions: Allergies Allergy/AdvReac Type Severity Reaction Status Date / Time clarithromycin [From Biaxin] Allergy Chills and Verified 10/11/23 17:39 cold sweats bee stings Allergy Anaphylaxis Uncoded 10/11/23 17:39 bioxin Allergy Unknown Uncoded 10/11/23 17:39 Review of Systems ROS Statement: Those systems with pertinent positive or pertinent negative responses have been documented in the HPI. ROS Other: All systems not noted in ROS Statement are negative. General Exam - General Exam Comments Initial Comments: NIH is 0 Limitations: no limitations General appearance: alert, in no apparent distress, anxious, in distress Head exam: Present: atraumatic, normocephalic, normal inspection Eye exam: Present: normal appearance, PERRL, EOMI. Absent: scleral icterus, conjunctival injection, periorbital swelling ENT exam: Present: normal exam, mucous membranes moist Neck exam: Present: normal inspection. Absent: tenderness, meningismus, lymphadenopathy Respiratory exam: Present: normal lung sounds bilaterally. Absent: respiratory distress, wheezes, rales, rhonchi, stridor Cardiovascular Exam: Present: regular rate, normal rhythm, normal heart sounds. Absent: systolic murmur, diastolic murmur, rubs, gallop, clicks GI/Abdominal exam: Present: soft, normal bowel sounds. Absent: distended, tenderness, guarding, rebound, rigid Extremities exam: Present: normal inspection, full ROM, normal capillary refill. Absent: tenderness, pedal edema, joint swelling, calf tenderness Back exam: Present: normal inspection Neurological exam: Present: alert, oriented X3, CN II-XII intact Psychiatric exam: Present: normal affect, normal mood Skin exam: Present: warm, dry, intact, normal color. Absent: rash Stroke MDM - Lab Data Result diagrams: 10/11/23 15:27 10/11/23 15:27 Lab Results 10/11/23 10/11/23 10/11/23 Range/Units 15:27 15:27 15:27 WBC 4.7 (3.8-10.6) k/uL RBC 4.41 (4.30-5.90) m/uL Hgb 12.4 L (13.0-17.5) gm/dL Hct 38.0 L (39.0-53.0) % MCV 86.1 (80.0-100.0) fL MCH 28.0 (25.0-35.0) pg MCHC 32.6 (31.0-37.0) g/dL RDW 13.1 (11.5-15.5) % Plt Count 245 (150-450) k/uL MPV 7.2 Neutrophils % 62 % Lymphocytes % 23 % Monocytes % 7 % Eosinophils % 5 % Basophils % 1 % Neutrophils # 2.9 (1.3-7.7) k/uL Lymphocytes # 1.1 (1.0-4.8) k/uL Monocytes # 0.3 (0-1.0) k/uL Eosinophils # 0.2 (0-0.7) k/uL Basophils # 0.0 (0-0.2) k/uL PT 10.2 (10.0-12.5) sec INR 0.9 (<1.2) APTT 22.5 (22.0-30.0) sec Sodium 139 (137-145) mmol/L Potassium 3.9 (3.5-5.1) mmol/L Chloride 109 H (98-107) mmol/L Carbon Dioxide 23 (22-30) mmol/L Anion Gap 7 mmol/L BUN 24 H (9-20) mg/dL Creatinine 1.08 (0.66-1.25) mg/dL Est GFR (CKD-EPI)AfAm 88 (>60 ml/min/1.73 sqM) Est GFR (CKD-EPI)NonAf 76 (>60 ml/min/1.73 sqM) Glucose 147 H (74-99) mg/dL Estimated Ave Glu mg/dL mg/dL Hemoglobin A1c (<=6.0) % Calcium 9.0 (8.4-10.2) mg/dL Total Bilirubin 0.5 (0.2-1.3) mg/dL AST 30 (17-59) U/L ALT 27 (4-49) U/L Alkaline Phosphatase 96 (38-126) U/L Creatine Kinase 107 (55-170) U/L Troponin I (0.000-0.034) ng/mL Total Protein 6.6 (6.3-8.2) g/dL Albumin 3.9 (3.5-5.0) g/dL Triglycerides (0.00-149.00) mg/dL Cholesterol (0.00-200.00) mg/dL LDL Cholesterol, Calc (0.0-131.0) mg/dL VLDL Cholesterol, Calc (5.00-40.00) mg/dL HDL Cholesterol (40.00-60.00) mg/dL Cholesterol/HDL Ratio Ratio TSH (0.465-4.680) mIU/L 10/11/23 10/11/23 10/11/23 Range/Units 15:27 15:27 15:27 WBC (3.8-10.6) k/uL RBC (4.30-5.90) m/uL Hgb (13.0-17.5) gm/dL Hct (39.0-53.0) % MCV (80.0-100.0) fL MCH (25.0-35.0) pg MCHC (31.0-37.0) g/dL RDW (11.5-15.5) % Plt Count (150-450) k/uL MPV Neutrophils % % Lymphocytes % % Monocytes % % Eosinophils % % Basophils % % Neutrophils # (1.3-7.7) k/uL Lymphocytes # (1.0-4.8) k/uL Monocytes # (0-1.0) k/uL Eosinophils # (0-0.7) k/uL Basophils # (0-0.2) k/uL PT (10.0-12.5) sec INR (<1.2) APTT (22.0-30.0) sec Sodium (137-145) mmol/L Potassium (3.5-5.1) mmol/L Chloride (98-107) mmol/L Carbon Dioxide (22-30) mmol/L Anion Gap mmol/L BUN (9-20) mg/dL Creatinine (0.66-1.25) mg/dL Est GFR (CKD-EPI)AfAm (>60 ml/min/1.73 sqM) Est GFR (CKD-EPI)NonAf (>60 ml/min/1.73 sqM) Glucose (74-99) mg/dL Estimated Ave Glu mg/dL 126 mg/dL Hemoglobin A1c 6.0 (<=6.0) % Calcium (8.4-10.2) mg/dL Total Bilirubin (0.2-1.3) mg/dL AST (17-59) U/L ALT (4-49) U/L Alkaline Phosphatase (38-126) U/L Creatine Kinase (55-170) U/L Troponin I <0.012 (0.000-0.034) ng/mL Total Protein (6.3-8.2) g/dL Albumin (3.5-5.0) g/dL Triglycerides 167.00 H (0.00-149.00) mg/dL Cholesterol 180.00 (0.00-200.00) mg/dL LDL Cholesterol, Calc 112.8 (0.0-131.0) mg/dL VLDL Cholesterol, Calc 33.40 (5.00-40.00) mg/dL HDL Cholesterol 33.80 L (40.00-60.00) mg/dL Cholesterol/HDL Ratio 5.33 Ratio TSH 0.451 L (0.465-4.680) mIU/L - NIH Stroke Scale 1a. Level of Consciousness: (0) alert 1b. LOC Questions: (0) answers correctly 1c. LOC Commands: (0) performs tasks correctly 2. Best Gaze: (0) normal 3. Visual: (0) no visual loss 4. Facial Palsy: (0) normal symmetrical movement 5a. Motor Arm Left: (0) no drift 5b. Motor Arm Right: (0) no drift 6a. Motor Leg Left: (0) no drift 6b. Motor Leg Right: (0) no drift 7. Limb Ataxia: (0) absent 8. Sensory: (0) normal 9. Best Language: (0) no aphasia 10. Dysarthria: (0) normal 11. Extinction/Inattention: (0) no abnormality - Thrombolytic Inclusion/Exclusion Thrombolytic Inclusion Criteria: Symptom Onset < 4.5 h, NIH Stroke Scale Deficit (0) - Medical Decision Making 58 male to ER with vertiginous symptoms symptoms are improved here in the ER but he is concerned for acute CVA. Patient had a snap in his neck prior to arrival all symptoms are generally improved here in the ER but he still feels off - Radiology Data Radiology results: report reviewed (CT Brain CT angio head and neck negative for acute disease), image reviewed - EKG Data -: EKG Interpreted by Me (EKG shows sinus 61 OH 122 QRS 92 QTc 461) Past Medical History Past Medical History: Hypertension Additional Past Surgical History / Comment(s): Tube in ear (August 2023) Past Psychological History: No Psychological Hx Reported Smoking Status: Never smoker Past Alcohol Use History: None Reported Past Drug Use History: None Reported Course Vital Signs 10/11/23 10/11/23 10/11/23 14:32 15:15 15:30 Temperature 97.9 F Pulse Rate 57 L 61 60 Respiratory 16 18 18 Rate Blood Pressure 143/83 123/73 130/76 O2 Sat by Pulse 97 95 98 Oximetry 10/11/23 10/11/23 10/11/23 15:45 16:15 16:45 Temperature Pulse Rate 62 71 74 Respiratory 18 18 18 Rate Blood Pressure 127/80 134/80 120/71 O2 Sat by Pulse 98 99 96 Oximetry 10/11/23 10/11/23 10/11/23 17:00 18:00 18:49 Temperature Pulse Rate 74 70 67 Respiratory 18 18 18 Rate Blood Pressure 122/77 139/81 124/77 O2 Sat by Pulse 96 97 97 Oximetry 10/11/23 19:00 Temperature Pulse Rate 66 Respiratory 18 Rate Blood Pressure 128/77 O2 Sat by Pulse 96 Oximetry - Reevaluation(s) Reevaluation #1: Medical records reviewed No tPA Secondary to negative NIH Reevaluation #2: Patient symptoms unchanged Reevaluation #3: Patient informed of results questions answered Reevaluation #4: Was pt. sent in by a medical professional or institution (, PA, MORTAR MAKER, urgent care, hospital, or penitentiary...) When possible be specific @ -no Did you speak to anyone other than the patient for history (EMS, parent, family, police, friend...)? What history was obtained from this source @ -no Did you review nursing and triage notes (agree or disagree)? Why? @ -agree Are old charts reviewed (outside hosp., previous admission, EMS record, old EKG, old radiological studies, urgent care reports/EKG's, penitentiary records)? Report findings @ -yes Differential Diagnosis (chest pain, altered mental status, abdominal pain women, abdominal pain men, vaginal bleeding, weakness, fever, dyspnea, syncope, headache, dizziness, GI bleed, back pain, seizure, CVA, palpatations, mental health, musculoskeletal)? @ -prior EKG interpreted by me (3pts min.). @ -yes X-rays interpreted by me (1pt min.). @ -yes negative for acute disease CT interpreted by me (1pt min.). @ -Negative for acute disease U/S interpreted by me (1pt. min.). @ -no What testing was considered but not performed or refused? (CT, X-rays, U/S, labs)? Why? @ -none What meds were considered but not given or refused? Why? @ -none Did you discuss the management of the patient with other professionals (professionals i.e. Dr., PA, MORTAR MAKER, lab, RT, psych nurse, licensed social worker, sonar watchstander, teacher, parachute officer, telephonic nurse case manager)? Give summary @ -no Was smoking cessation discussed for >3mins.? @ -no Was critical care preformed (if so, how long)? @ -yes31 Were there social determinants of health that impacted care today? How? (Homeles sness, low income, unemployed, alcoholism, drug addiction, transportation, low edu. Level, literacy, decrease access to med. care, halfway, rehab)? @ -none Was there de-escalation of care discussed even if they declined (Discuss DNR or withdrawal of care, Hospice)? DNR status @ -no What co-morbidities impacted this encounter? (DM, HTN, Smoking, COPD, CAD, Cancer, CVA, ARF, Chemo, Hep., AIDS, mental health diagnosis, sleep apnea, morbid obesity)? @ -none Was patient admitted / discharged? Hospital course, mention meds given and route, prescriptions, significant lab abnormalities, going to OR and other 58 male to ER with vertiginous symptoms symptoms are improved here in the ER but he is concerned for acute CVA. Patient had a snap in his neck prior to arrival all symptoms are generally improved here in the ER but he still feels off Admitted Undiagnosed new problem with uncertain prognosis? @ -no Drug Therapy requiring intensive monitoring for toxicity (Heparin, Nitro, Insulin, Cardizem)? @ -no Were any procedures done? @ -no Diagnosis/symptom? @ -TIA TIA vertigo Acute, or Chronic, or Acute on Chronic? @ -Acute Uncomplicated (without systemic symptoms) or Complicated (systemic symptoms)? @ -Complicated Side effects of treatment? @ -no Exacerbation, Progression, or Severe Exacerbation? @ -exacerbation Poses a threat to life or bodily function? How? (Chest pain, [place], [place], pneumonia, PE, COPD, DKA, ARF, appy, cholecystitis, CVA, Diverticulitis, Homicidal, Suicidal, threat to staff... and all critical care pts) @ -yes possible CVA,TIA vertigo Reevaluation #5: Differential CVA Ischemic stroke, hemorrhagic stroke, brain tumor, atypical migraine, Wernicke's encephalopathy, seizure, multiple sclerosis, meningitis, encephalitis, hypoglycemia, Guillain-Gold, electrolytes disturbance, myasthenia gravis.... This is not meant to be an all-inclusive list - Consultations Consultation #1: Spoke with admitting physicians who agreed to admit this patient Critical Care Time Critical Care Time: Yes Total Critical Care Time: 31 Disposition Clinical Impression: Cerebrovascular accident (CVA), Transient cerebral ischemia, Vertigo Disposition: ADMITTED IP TO THIS [facility] Condition: Stable Is patient prescribed a controlled substance at d/c from ED?: No Time of Disposition: 18:50
[2023-10-11] MEDS: ONDANSETRON 4 MG/2 ML VIAL IVP STA (15:30)
[2023-10-11] MEDS: SODIUM CHLORIDE 0.9% 1,000 ML IV STA (15:30)
[2023-10-11 15:44] LABS: Basophils % (A) 1 %; Eosinophils # (A) 0.2 k/uL (0-0.7); Eosinophils % (A) 5 %; HGB 12.4 gm/dL (13.0-17.5); Lymphocytes # (A) 1.1 k/uL (1.0-4.8); Lymphocytes % (A) 23 %; MCHC 32.6 g/dL (31.0-37.0); MCV 86.1 fL (80.0-100.0); Mean Platelet Volume 7.2; Monocytes # (A) 0.3 k/uL (0-1.0); Monocytes % (A) 7 %; Neutrophils # (A) 2.9 k/uL (1.3-7.7); Neutrophils % (A) 62 %; Platelet Count 245 k/uL (150-450); RBC 4.41 m/uL (4.30-5.90); RDW 13.1 % (11.5-15.5); WBC 4.7 k/uL (3.8-10.6)
[2023-10-11 15:52] LABS: ALT 27 U/L (4-49); AST 30 U/L (17-59); African American GFR (CKD) 88 (>60 ml/min/1.73 sqM); Albumin 3.9 g/dL (3.5-5.0); Alkaline Phosphatase 96 U/L (38-126); Anion Gap 7 mmol/L; Blood Urea Nitrogen 24 mg/dL (9-20); Carbon Dioxide 23 mmol/L (22-30); Chloride 109 mmol/L (98-107); Creatine Kinase 107 U/L (55-170); Glucose 147 mg/dL (74-99); Non-African American GFR(CKD) 76 (>60 ml/min/1.73 sqM); Potassium 3.9 mmol/L (3.5-5.1); Sodium 139 mmol/L (137-145); Total Bilirubin 0.5 mg/dL (0.2-1.3); Total Protein 6.6 g/dL (6.3-8.2)
[2023-10-11 16:00] LABS: INR 0.9 (<1.2); Partial Thromboplastin Time 22.5 sec (22.0-30.0); Prothrombin Time 10.2 sec (10.0-12.5)
--- NOTE | 2023-10-11 16:33 | CT ---
EXAMINATION TYPE: CT brain wo con DATE OF EXAM: 10/11/2023 COMPARISON: 10/11/2023 HISTORY: Walking through store, heard a "snap" in his head, got really dizzy, started to get a headac he, light headed, weakness. CT DLP: Combined DLP of 2221.[address] of the brain was performed. The ventricles, basal cisterns and sulci overlying the cerebral convexities demonstrate mild enlargem ent. There is no evidence for intracranial hemorrhage or sulcal effacement. There is decreased attenuation about the periventricular white matter and deep white matter of both c erebral hemispheres, compatible with chronic small vessel ischemia. Differential diagnosis does inclu de demyelination. No mass effects are seen.No midline shift. Osseous calvarium is intact. If symptoms persist consider MRI. IMPRESSION: 1. Age related atrophic and chronic small vessel ischemic change without acute intracranial process s een at this time.
--- NOTE | 2023-10-11 17:48 | CT ---
EXAMINATION TYPE: CT angio head neck DATE OF EXAM: 10/11/2023 COMPARISON: None HISTORY: Walking through store, heard a "snap" in his head, got really dizzy, started to get a headac he, light headed, weakness. CT DLP: Combined DLP of 2221.5 mGycm CONTRAST: Performed with IV Contrast, patient injected with 65 cc mL of Isovue 370. Combination Contrast CTA cervical carotids and [place] CTA cervical carotids with 3-D recons truction Contrast CTA of the cervical carotids was performed 3-D reconstruction imaging obtained at a separate workstation. Right carotid system: Mild plaque is seen of the right common carotid artery. There is mild plaque a lso noted at the carotid bulb and proximal ICA. No significant diameter reduction. ECA is patent. Right vertebral artery appears unremarkable. Left carotid system: Mild plaque is seen of the left common carotid artery. There is mild plaque als o noted at the carotid bulb and proximal ICA. No significant diameter reduction. ECA is patent. Lef t vertebral artery appears unremarkable. IMPRESSION: 1. No significant diameter reduction to account for the patient's symptoms. CTA [place] with 3-D reconstruction Contrast CTA of the [place] was performed 3-D reconstruction imaging obtained at a separate workstation. Vertebrobasilar system as well as intracranial portions of the internal carotid arteries and their ma apolinar tributaries are patent. I do not see evidence for sizable aneurysm or vascular malformation. Pl ease note MRI provides greater sensitivity and specificity. Visualized brain appears grossly unremar kable. IMPRESSION: 1. No significant abnormality. NASCET criteria was used in interpretation of this exam?
[2023-10-11] MEDS: ASPIRIN 325 MG TAB PO STA (19:32)
[2023-10-11] MEDS: SODIUM CHLORIDE 0.9% 1,000 ML IV SCH (19:32)
--- NOTE | 2023-10-12 01:08 | P.HPIM ---
History of Present Illness H&P Date: 10/12/23 Chief Complaint: New onset vertigo Patient is a 58-year-old male with hypertension, who presents to the ER with a sudden onset of vertigo. Patient reports that he was at a shopping center with his when around 2 PM he turned his head to the left side and felt a snap which was followed by sudden onset of vertigo. Patient reports that he felt like as if his surroundings are spinning and he also saw wavy lines in his vision. He denies loss of balance or his vision going blurry or dark. Patient reports that he sat down in the chair which seem to have improved vertigo but it never completely stopped. His noticed that after patient reached home he had a droopy right eyelid, mild state of confusion, and incoherent speech lasting for about 4 to 5 hours. Per , there was a fall episode at home. Patient denies injury to the head. Patient denies seizure-like activity, tongue bite, urinary or bowel incontinence. Patient reports no previous episodes of v ertigo. He continues to have episodes of vertigo while at the hospital. Patient had an episode of vertigo after he had a shower but it resolved quickly after he went back to bed. He reports frontal headache but denies nausea and vomiting. Patient reports that he had right ear barotrauma while completing his cerfication for scuba diving in August. He had right ear tympanostomy 3 weeks ago at [facility]. He denies any right ear pain and discharge. He denies any recent upper respiratory tract infection. Patient denies any previous history of CAD and CVA. Patient denies shortness of breath, chest pain, abdominal pain, diarrhea, constipation, urinary urgency/frequency/pain and numbness or weakness in upper and lower extremities. EKG done in the ER shows heart rate of [address] or T wave abnormalities. QTc is 422 and is not prolonged. Normal R wave progression. Overall normal EKG. CT brain shows no evidence for intracranial hemorrhage. Age-related atrophic and chronic small vessel ischemic changes without acute intracranial process. CT angio of the head and neck is unremarkable. The laboratory evaluation shows WBC 4.7, hemoglobin 12.4, hematocrit 38.0, dez telet count 245, PT 10.8, INR 0.9, APTT 22.5, sodium 139, potassium 3.9, chloride 109, bicarb 23, BUN 24, glucose 147, Trop I less than 0.012. Vitals: Tmax 97.9 F, heart rate 66, respiratory 16, blood pressure 128/77, O2 saturation 97% on room air. Review of systems: Pertinent positives and negatives as discussed in HPI, a complete review of systems was performed and all other systems are negative. Social history: Tobacco: Quit 18 years ago, 2 packs/day x 25 years Alcohol: None Recreational drugs: None Travel: None Occupation: None Family History: Mother had a stroke in her 60s Physical examination: Vital signs reviewed General: non toxic, no distress, appears at stated age, obese Derm: no unusual rashes/lesions, warm Head: atraumatic, normocephalic, symmetric Eyes: EOMI, no lid lag, anicteric sclera, pupils equal round reactive to light ENT: Nose and ears atraumatic Neck: No cervical lymphadenopathy, trachea midline, supple Mouth: no lip lesion, mucus membranes moist Cardiovascular: S1S2 reg, no murmur, positive dorsalis pedis pulse bilateral, no edema Lungs: CTA bilateral, no rhonchi, no rales, no accessory muscle use Abdominal: soft, nontender to palpation, no guarding Ext: muscle strength 5 out of 5 in all 4 extremities grossly, no gross muscle atrophy, no contractures, Neuro: CN II-XI grossly intact, no gross focal neuro deficits Psych: Alert, oriented, appropriate affect Assessment/Plan: 58-year-old male with hypertension who presents the ER with a sudden onset of vertigo associated with transient right ptosis, slurred speech and altered mental state, now back to baseline. 1. Transient ischemic attack ABCD score for TIA: [address] brain shows Age-related atrophic and chronic small vessel ischemic changes without acute intracranial process. Ordered echocardiogram to rule out thrombus and cardiac structure abnormality Consult OT and PT Consult speech therapy Continue neurochecks Continue fall precautions Continue aspirin 325 mg daily Continue normal saline 100 cc/h Order orthostatic vitals 2. Vertigo, eustachian tube dysfunction vs TIA Consult neurology Give Zofran 4 mg IVP prn Continue with fall precautions 3. Hyperglycemia Serum glucose level 147 Check HbA1c Started on sliding scale short acting insulin 4. Elevated BUN, likely due to dehydration BUN 24, creatinine 1.08, EGFR 76 Continue with normal saline 100 cc/h Continue monitoring BUN and creatinine 5. Low hemoglobin Hemoglobin 12.4, hematocrit 38.0 Unable to establish baseline Continue monitoring serum hemoglobin *Chronic conditions: Hypertension, GERD Resume home meds Lotrel 5-20 mg 1 capsule p.o. daily Nexium 40 mg p.o. daily DVT prophylaxis: Lovenox 40 mg subcu daily The patient is admitted with an anticipated more than 2 midnight stay for evaluation of TIA CODE STATUS: Full Discussed with: Patient Anticipated discharge place: Home Past Medical History Past Medical History: Hypertension History of Any Multi-Drug Resistant Organisms: None Reported Additional Past Surgical History / Comment(s): Tube in right ear (August 2023) Past Anesthesia/Blood Transfusion Reactions: No Reported Reaction Past Psychological History: No Psychological Hx Reported Smoking Status: Never smoker Past Alcohol Use History: None Reported Past Drug Use History: None Reported Medications and Allergies Home Medications Medication Instructions Recorded Confirmed Type Ammonium Lactate Lotion 1 applic TOPICAL DAILY PRN 10/11/23 10/11/23 History [Lac-Hydrin 12% Lotion] Aspirin EC [Ecotrin Low Dose] 81 mg PO HS 10/11/23 10/11/23 History Esomeprazole Magnesium [NexIUM] 40 mg PO DAILY 10/11/23 10/11/23 History Ibuprofen [Motrin] 800 mg PO BID PRN 10/11/23 10/11/23 History Meloxicam [Mobic] 7.5 mg PO DAILY 10/11/23 10/11/23 History Metoprolol Succinate (ER) [Toprol 50 mg PO DAILY 10/11/23 10/11/23 History Xl] amLODIPine BESYLATE/BENAZEPRIL 1 cap PO DAILY 10/11/23 10/11/23 History [Lotrel 5-20 mg Capsule] hydroCHLOROthiazide 12.5 mg PO DAILY 10/11/23 10/11/23 History Allergies Allergy/AdvReac Type Severity Reaction Status Date / Time clarithromycin [From Biaxin] Allergy Chills and Verified 10/11/23 17:39 cold sweats bee stings Allergy Anaphylaxis Uncoded 10/11/23 17:39 bioxin Allergy Unknown Uncoded 10/11/23 17:39 Physical Exam Vitals: Vital Signs Temp Pulse Pulse Resp BP BP Pulse Ox 10/12/23 00:30 71 16 112/60 97 10/11/23 20:05 97.9 F 63 16 147/85 97 10/11/23 19:00 66 18 128/77 96 10/11/23 18:49 67 18 124/77 97 10/11/23 18:00 70 18 139/81 97 10/11/23 17:00 74 18 122/77 96 10/11/23 16:45 74 18 120/71 96 10/11/23 16:15 71 18 134/80 99 10/11/23 15:45 62 18 127/80 98 10/11/23 15:30 60 18 130/76 98 10/11/23 15:15 61 18 123/73 95 10/11/23 14:32 97.9 F 57 L 16 143/83 97 Intake and Output 10/11/23 10/11/23 10/12/23 14:59 22:59 06:59 Other: Weight 117.934 kg 117.934 kg Results CBC & Chem 7: 10/11/23 15:27 10/11/23 15:27 Labs: Abnormal Lab Results - Last 24 Hours (Table) 10/11/23 10/11/23 Range/Units 15:27 15:27 Hgb 12.4 L (13.0-17.5) gm/dL Hct 38.0 L (39.0-53.0) % Chloride 109 H (98-107) mmol/L BUN 24 H (9-20) mg/dL Glucose 147 H (74-99) mg/dL Thrombosis Risk Factor Assmnt - Choose All That Apply Any of the Below Risk Factors Present?: Yes Each Factor Represents 1 point: Age 41-60 years, Obesity (BMI >25) Other Risk Factors: No Other congenital or acquired thrombophilia - If yes, enter type in comment: No Thrombosis Risk Factor Assessment Total Risk Factor Score: 2 Thrombosis Risk Factor Assessment Level: Low Risk
[2023-10-12] MEDS: ENOXAPARIN 40 MG/0.4 ML SYRINGE SQ STA (01:43)
[2023-10-12 06:08] LABS: Glucose,Whole Blood 105 mg/dL (70-110)
[2023-10-12] MEDS: INSULIN ASPART (NovoLOG) 100 UNIT/ML VIAL SQ SCH (06:11)
[2023-10-12] MEDS: PANTOPRAZOLE 40 MG TABLET PO SCH (06:25)
[2023-10-12] MEDS: lisinopriL 20 MG TAB PO SCH (08:50)
[2023-10-12] MEDS: amLODIPine 5 MG TAB PO SCH (08:50)
[2023-10-12] MEDS: ASPIRIN 325 MG TAB PO SCH (08:50)
[2023-10-12 11:38] LABS: Glucose,Whole Blood 96 mg/dL (70-110)
[2023-10-12] MEDS ORDERED: bisacodyL 5 MG TABLET.DR PO PRN (13:51)
[2023-10-12] MEDS ORDERED: ONDANSETRON 4 MG/2 ML VIAL IVP PRN (13:51)
[2023-10-12] MEDS ORDERED: MELATONIN 5 MG TABLET PO PRN (13:51)
[2023-10-12] MEDS: ACETAMINOPHEN TAB 325 MG TAB PO PRN (14:08)
[2023-10-12] MEDS: CALCIUM CARBONATE 500 MG CHEWABLE PO PRN (14:09)
--- NOTE | 2023-10-12 16:18 | P.CNNES ---
History of Present Illness Consult date: 10/12/23 Reason for Consult: Stroke/vertigo History of Present Illness: The patient is a 58-year-old male who was seen in neurologic consultation on October 12, 2023, in collaboration with Geovany Rodriguez, via teleneurology. History is obtained from the patient, his was present at the bedside and review of the chart. The patient reports that he was shopping with his . He says that he turned his head to the left and felt a crack in his neck. He then had the sudden onset of dizziness and spinning. He was able to sit down. He did not fall. He was able to make at home and sat down in the chair at home. He apparently had some Gatorade. His states that he attempted to get up and did fall to the floor. There was no loss of consciousness. Patient reportedly knew he was going down and so lowered himself to the floor. Patient's reports that he was very pale and sweaty. He did not lose consciousness. The patient's speech was clear however, some of the answers to questions were not appropriate. He also reportedly had drooping of his right eyelid. In the emergency department, CT scan of the brain was performed. There is no reported evidence of acute hemorrhage or infarct. CT angiogram of the head and neck revealed no significant stenosis, large vessel occlusion or dissection. after being admitted to the hospital, the patient reports that he took a shower, without difficulty however, when he came out of the shower, he noted a zigzag formation in his left peripheral vision. There was no associated headache. This visual abnormality lasted for about 1/2-hour. This morning, the patient reports resolution of his symptoms. He no longer has vertigo. His speech is clear and his right eyelid is no longer improving. The patient reportedly has a history of right ear barotrauma secondary to scuba diving. He recently, 3 weeks ago had a tube placed in his right ear as well as a steroid injection because of possible fluid in the ear. Past Medical History Past Medical History: Hypertension History of Any Multi-Drug Resistant Organisms: None Reported Additional Past Surgical History / Comment(s): Tube in right ear (August 2023) Past Anesthesia/Blood Transfusion Reactions: No Reported Reaction Past Psychological History: No Psychological Hx Reported Smoking Status: Never smoker Past Alcohol Use History: None Reported Past Drug Use History: None Reported Medications and Allergies Home Medications Medication Instructions Recorded Confirmed Type Ammonium Lactate Lotion 1 applic TOPICAL DAILY PRN 10/11/23 10/11/23 History [Lac-Hydrin 12% Lotion] Aspirin EC [Ecotrin Low Dose] 81 mg PO HS 10/11/23 10/11/23 History Esomeprazole Magnesium [NexIUM] 40 mg PO DAILY 10/11/23 10/11/23 History Ibuprofen [Motrin] 800 mg PO BID PRN 10/11/23 10/11/23 History Meloxicam [Mobic] 7.5 mg PO DAILY 10/11/23 10/11/23 History Metoprolol Succinate (ER) [Toprol 50 mg PO DAILY 10/11/23 10/11/23 History Xl] amLODIPine BESYLATE/BENAZEPRIL 1 cap PO DAILY 10/11/23 10/11/23 History [Lotrel 5-20 mg Capsule] hydroCHLOROthiazide 12.5 mg PO DAILY 10/11/23 10/11/23 History Allergies Allergy/AdvReac Type Severity Reaction Status Date / Time clarithromycin [From Biaxin] Allergy Chills and Verified 10/11/23 17:39 cold sweats bee stings Allergy Anaphylaxis Uncoded 10/11/23 17:39 bioxin Allergy Unknown Uncoded 10/11/23 17:39 Physical Examination - Vital Signs Vital Signs: Vital Signs Temp Pulse Pulse Pulse Pulse Pulse Resp 10/12/23 09:25 10/12/23 08:05 64 66 72 10/12/23 07:58 98.0 F 63 64 66 72 18 10/12/23 07:57 98.0 F 63 16 10/12/23 03:30 64 16 10/12/23 00:30 71 16 10/11/23 20:05 97.9 F 63 16 10/11/23 19:00 66 18 10/11/23 18:49 67 18 10/11/23 18:00 70 18 10/11/23 17:00 74 18 10/11/23 16:45 74 18 10/11/23 16:15 71 18 10/11/23 15:45 62 18 10/11/23 15:30 60 18 10/11/23 15:15 61 18 10/11/23 14:32 97.9 F 57 L 16 BP BP BP BP Pulse Ox 10/12/23 09:25 97 10/12/23 08:05 147/88 138/82 134/81 10/12/23 07:58 119/74 97 10/12/23 07:57 119/74 97 10/12/23 03:30 109/60 96 10/12/23 00:30 112/60 97 10/11/23 20:05 147/85 97 10/11/23 19:00 128/77 96 10/11/23 18:49 124/77 97 10/11/23 18:00 139/81 97 10/11/23 17:00 122/77 96 10/11/23 16:45 120/71 96 10/11/23 16:15 134/80 99 10/11/23 15:45 127/80 98 10/11/23 15:30 130/76 98 10/11/23 15:15 123/73 95 10/11/23 14:32 143/83 97 Intake and Output 10/11/23 10/12/23 10/12/23 22:59 06:59 14:59 Intake Total 240 Balance 240 Intake: Oral 240 Other: # Voids 1 Weight 117.934 kg 126.5 kg General: The patient is well-nourished well-developed and in no acute distress HEENT: Head is atraumatic, normocephalic. Fundus not visualized. There is no scleral icterus. Mucous members are moist. Neck: Supple without carotid bruits Heart: Regular rate and rhythm Lungs: Essentially clear to auscultation Extremities: Without edema Neurological examination Mental status: The patient is awake, alert and oriented x 3. Speech is clear. There is no dysarthria or aphasia. Patient is able to accurately repeat phrases and name objects. Cranial nerves: Pupils are equal, round and reactive at 3 mm. Visual luciano are full to confrontation. Extraocular movements are intact. There is no nystagmus. Facial sensation is intact. There is no facial asymmetry. Hearing is grossly intact. Uvula and palate are midline. Shoulder shrug is symmetric. Tongue protrudes midline. Motor: Strength is 5/5 throughout. Sensation: Grossly intact to light touch throughout. There is no extinction with double simultaneous stimulation. Coordination: [id number], rapid alternating movements and [id number] is intact. There is no pronator drift. Deep tendon reflexes: 2-3+/4+ throughout. Plantar responses are flexor bilaterally. Gait: Not assessed Results - Laboratory Findings CBC and BMP: 10/11/23 15:27 10/11/23 15:27 Abnormal Lab Findings: Abnormal Labs 10/11/23 10/11/23 15:27 15:27 Hgb 12.4 L Hct 38.0 L Chloride 109 H BUN 24 H Glucose 147 H Assessment and Plan Assessment: 1. New onset vertigo, possible posterior territory infarct versus TIA versus benign positional vertigo. 2. History of recent ear trauma 3. History of hypertension Plan: 1. Stroke order set has been placed 2. MRI of the brain has been ordered to further evaluate for cerebral ischemia 3. Consider addition of high intensity statin, especially if MRI is positive for stroke 4. Consider dual antiplatelet therapy, if MRI is positive for acute infarct Thank you for allowing us to participate in the care of this patient Dr. Young will assume neurologic coverage of this patient as of October 13, 2023 Time with Patient: Greater than 30 (60 minutes were spent caring for this patient today including, obtaining history, examining the patient, reviewing imaging, chart documentation, labs, placing orders and creating this note)
[2023-10-12 16:27] LABS: Glucose,Whole Blood 142 mg/dL (70-110)
--- NOTE | 2023-10-12 16:36 | P.PN ---
Progress Note - Text Progress Note Date: 10/12/23 (delayed charting seen at 1220) Hospitalist Interval Note Patient seen and examined at bedside. Dizziness is now resolved, has a bit of a headache which is unusual for him. Denies chest pain or shortness of breath. No instances like this before. states that he was speaking clearly but it did not make sense Vital signs reviewed General: Non toxic, no distress, appears at stated age Mouth: No lip lesion, mucus membranes moist Cardiovascular: S1S2 reg, no murmur, positive posterior tibial pulse bilateral, Lungs: CTA bilateral, no rhonchi, no rales, no accessory muscle use Ext: No gross muscle atrophy, no edema, no contractures Neuro: CN II-XI grossly intact, no focal neuro deficits Psych: Alert, oriented, appropriate affect Assessment/Plan: TIA versus CVA versus focal impaired awareness seizure with postictal state -Aspirin 325 mg daily, start Lipitor 80 mg daily -Await neurology recommendations -MRI brain, echocardiogram -Unfortunately patient was not given a chance for permissive hypertension for 24 hours as blood pressure medicines had already been given. Patient chronically on Norvasc 5 mg daily, lisinopril 20 mg daily -Speech consultation for cognition given symptoms. -A1c 6 and no need for repeat -Check lipid panel in a.m. prior to fasting This is an update note for patient , for full note on 10/12/23 see H and P. There is no charge associated with this note.
[2023-10-12 20:20] LABS: Glucose,Whole Blood 118 mg/dL (70-110)
[2023-10-12] MEDS: ATORVASTATIN 80 MG TAB PO SCH (20:39)
[2023-10-13 05:56] LABS: Glucose,Whole Blood 120 mg/dL (70-110)
[2023-10-13] MEDS: ENOXAPARIN 40 MG/0.4 ML SYRINGE SQ SCH (08:18)
[2023-10-13 08:26] VITALS: RESP 16
[2023-10-13 11:47] LABS: Glucose,Whole Blood 116 mg/dL (70-110)
--- NOTE | 2023-10-13 12:17 | CA ---
Transthoracic Echo Report Name: Marilu Patel Age: 58 Gender: M : 1965 Exam Date: 10/13/2023 09:04 Exam Location: [facility] Ht (in): 75 Wt (lb): 260 Ordering Physician: Scott Ruiz DO Attending/Referring Phys: [id number], Joseph Furnace Hand Margot Garcia RDCS Procedure CPT: Indications: Thrombus Cardiac Hx: Technical Quality: Fair Contrast 1: Total Dose (mL): Contrast 2: Total Dose (mL): MEASUREMENTS (Male / Female) Normal Values 2D ECHO LV Diastolic Diameter PLAX 5.8 cm 4.2 - 5.9 / 3.9 - 5.3 cm LV Systolic Diameter PLAX 3.7 cm IVS Diastolic Thickness 1.2 cm 0.6 - 1.0 / 0.6 - 0.9 cm LVPW Diastolic Thickness 1.3 cm 0.6 - 1.0 / 0.6 - 0.9 cm LV Relative Wall Thickness 0.4 RV Internal Dim ED PLAX 1.7 cm Aortic Root Diameter 3.7 cm LA Systolic Diameter LX 4.8 cm 3.0 - 4.0 / 2.7 - 3.8 cm LV Diastolic Volume MOD BP 100.1 cm??? 67 - 155 / 56 - 104 cm??? LV Systolic Volume MOD BP 39.5 cm??? 22 - 58 / 19 - 49 cm??? LV Ejection Fraction MOD BP 60.5 % >= 55 % LV Diastolic Volume MOD 4C 94.4 cm??? LV Systolic Volume MOD 4C 33.0 cm??? LV Ejection Fraction MOD 4C 65.0 % LV Diastolic Length 4C 7.6 cm LV Systolic Length 4C 6.2 cm LV Diastolic Volume MOD 2C 106.0 cm??? LV Systolic Volume MOD 2C 49.4 cm??? LV Ejection Fraction MOD 2C 53.4 % LV Diastolic Length 2C 7.6 cm LV Systolic Length 2C 6.3 cm LA Volume 72.1 cm??? 18 - 58 / 22 - 52 cm??? LA Volume Index 28.5 cm???/m??? 16 - 28 cm???/m??? M-MODE Aortic Root Diameter MM 3.4 cm LA Systolic Diameter MM 4.0 cm LA Ao Ratio MM 1.2 AV Cusp Separation MM 1.6 cm DOPPLER AV Peak Velocity 156.3 cm/s AV Peak Gradient 9.8 mmHg MV Area PHT 2.2 cm??? Mitral E Point Velocity 117.4 cm/s Mitral A Point Velocity 114.4 cm/s Mitral E to A Ratio 1.0 MV Deceleration Time 351.0 ms TR Peak Velocity 186.2 cm/s TR Peak Gradient 13.9 mmHg FINDINGS Left Ventricle Left ventricular ejection fraction is estimated at 55-60 %. Mildly increased septal wall thickness.no obvious regional wall motion abnormalities. Left ventricular cavity size normal. No obvious left ventricular thrombus. Right Ventricle Normal right ventricular size and function. Right ventricular systolic pressure within normal limits. Right Atrium Mild right atrial dilatation. Left Atrium Moderately increased left atrial diameter. Moderately increased left atrial volume. Mildly increased left atrial area. Mitral Valve Structurally normal mitral valve. Trace mitral regurgitation. No mitral stenosis. Aortic Valve Trileaflet aortic valve. No aortic valve stenosis or regurgitation. Tricuspid Valve Structurally normal tricuspid valve. Trace tricuspid regurgitation. Pulmonic Valve Structurally normal pulmonic valve. No pulmonic regurgitation. No pulmonic stenosis. Pericardium No pericardial or pleural effusion. Aorta Normal size aortic root and proximal ascending aorta. CONCLUSIONS Left ventricular ejection fraction 55-60% Mildly increased left ventricular wall thickness Mild to moderately dilated left atrium Trace mitral regurgitation Trace tricuspid regurgitation Previewed by: Dr. Washington Purcell DO (Electronically Signed) Final Date: 13 October 2023 12:16
[2023-10-13] MEDS: diphenhydrAMINE 50 MG/ML 1 ML VIAL IVP STA (14:12)
[2023-10-13] MEDS: KETOROLAC 15 MG/ML 1 ML VIAL IVP STA (14:12)
[2023-10-13] MEDS: PROCHLORPERAZINE INJ 10 MG/2 ML VIAL IVP STA (14:12)
[2023-10-13] MEDS: LORazepam 2 MG/ML INJ IV STA (14:35)
[2023-10-13 15:41] LABS: Chol/HDL Ratio 5.33 Ratio; LDL Cholesterol,Calculated 112.8 mg/dL (0.0-131.0)
[2023-10-13 16:05] VITALS: BP 143/80; PULSE 62; TEMP 98
[2023-10-13 16:50] LABS: Glucose,Whole Blood 108 mg/dL (70-110)
--- NOTE | 2023-10-13 16:59 | P.DS ---
Providers Date of admission: 10/11/23 18:47 Expected date of discharge: 10/13/23 Attending physician: Annette Salmeron DO Consults: 10/11/23 18:48 Consult Physician Routine Consulting Provider: Chloe Contreras Consult Reason/Comments: cva,vertigo Do you want consulting provider notified?: Yes Primary care physician: [facility] Hospital Course: Discharge Diagnosis: TIA Vertigo Abnormal TSH, free T4 not available at time of discharge. Patient recommended to follow-up outpatient with PCP for repeat thyroid function testing. Hypertension Hospital Course: Patient is a 58-year-old male with hypertension. He presented to the ER on 10/11/2023 with a chief complaint of sudden onset of vertigo. On arrival to our facility, patient underwent evaluation in the emergency department. Vital signs upon arrival show blood pressure 143/83, heart rate 57, respiratory rate 16, temp 97.9 F, and SpO2 of 97% on room air. EKG was completed showing normal sinus rhythm at 61 bpm with no significant T wave or ST abnormalities showing no signs of acute ischemia upon personal review and interpretation. CT brain showing age-related atrophic and chronic small vessel ischemic changes but negative for acute intracranial process. CTA head and neck negative for acute process. Patient was admitted under our services with consultation to neurology. Echocardiogram completed showing preserved EF of 55 to 60% with mild to moderately dilated left atrium and trace mitral and tricuspid regurgitation. Lipid profile showing elevated triglycerides of 167.00 and low HDL of 33.80. MRI brain was completed and reviewed by neurologist. Patient has been cleared by neurology and recommended patient be discharged home on dual antiplatelet therapy with aspirin and Plavix for 21 days followed by daily aspirin indefinitely. Neurologist also recommending patient follow-up outpatient with his station operator at [facility] for follow-up and scheduling of event monitor placement. Medically, patient is stable for discharge at this time reports full resolution of previous reported dizziness. Patient to follow-up outpatient with PCP in 1 to 2 days and with station operator in 1 week. Official MRI results/report not available at time of discharge, MRI was read by neurologist Dr. Young clearing patient from neurological standpoint for discharge. Physical exam: Patient seen and examined at bedside. Vital signs reviewed and stable. General: Nontoxic, no distress and appears stated age. Derm: Skin warm and dry, normal coloration for ethnicity. Head: Atraumatic, normocephalic and symmetric. Eyes: EOMs intact, no lid lag, and anicteric sclera Mouth: no lip lesions, mucus membranes moist Cardiovascular: regular rate and rhythm with normal S1S2, no murmur, positive posterior tibial pulses bilaterally, and cap refill < 2 seconds. Lungs: Respirations even, regular, and unlabored on room air. Lungs CTA bilaterally, no rhonchi, no rales, no wheezing, and no accessory muscle usage. Abdominal: soft, nontender to palpation, no guarding, no appreciable organomegaly Ext: ROM intact. No gross muscle atrophy, no edema, no contractures Neuro: Speech clear, face symmetrical and CN II-XII grossly intact with no noted focal neuro deficits Psych: Alert and oriented to person, place, time, and situation. Appropriate and pleasant affect. A total of 33 minutes of time were spent preparing this complex discharge summary. Pt was discharged on 10/13/2023 at 4:45 PM. Patient was seen independently by Nurse Practitioner. This document was prepared using [employer] dictation software. Please allow for errors in nitroglycerin distributor while rare they do occur. I reviewed the documentation as provided by the JAKOB above, who is the original author of this note. I agree with the documented assessment and plan, with the following changes: none Patient Condition at Discharge: Stable Plan - Discharge Summary Discharge Rx Participant: No New Discharge Prescriptions: New Atorvastatin [Lipitor] 20 mg PO HS 30 Days #30 tab Clopidogrel [Plavix] 75 mg PO DAILY 21 Days #21 tablet Continue hydroCHLOROthiazide 12.5 mg PO DAILY Meloxicam [Mobic] 7.5 mg PO DAILY Esomeprazole Magnesium [NexIUM] 40 mg PO DAILY Aspirin EC [Ecotrin Low Dose] 81 mg PO HS amLODIPine BESYLATE/BENAZEPRIL [Lotrel 5-20 mg Capsule] 1 cap PO DAILY Metoprolol Succinate (ER) [Toprol XL] 50 mg PO DAILY Ammonium Lactate Lotion [Lac-Hydrin 12% Lotion] 1 applic TOPICAL DAILY PRN PRN Reason: Dry Skin Discontinued Ibuprofen [Motrin] 800 mg PO BID PRN PRN Reason: Pain Discharge Medication List Ammonium Lactate Lotion [Lac-Hydrin 12% Lotion] 1 applic TOPICAL DAILY PRN 10/11/23 [History] Aspirin EC [Ecotrin Low Dose] 81 mg PO HS 10/11/23 [History] Esomeprazole Magnesium [NexIUM] 40 mg PO DAILY 10/11/23 [History] Meloxicam [Mobic] 7.5 mg PO DAILY 10/11/23 [History] Metoprolol Succinate (ER) [Toprol XL] 50 mg PO DAILY 10/11/23 [History] amLODIPine BESYLATE/BENAZEPRIL [Lotrel 5-20 mg Capsule] 1 cap PO DAILY 10/11/23 [History] hydroCHLOROthiazide 12.5 mg PO DAILY 10/11/23 [History] Atorvastatin [Lipitor] 20 mg PO HS 30 Days #30 tab 10/13/23 [Rx] Clopidogrel [Plavix] 75 mg PO DAILY 21 Days #21 tablet 10/13/23 [Rx] Follow up Appointment(s)/Referral(s): [facility],Clinic [Primary Care Provider] - 10/22/23 2:00 pm (If date/time changes, office will notify you.) Patient Instructions/Handouts: Transient Ischemic Attack (DC) Activity/Diet/Wound Care/Special Instructions: Off work for [address] Young, neurologist. Activity: As tolerated. Take breaks as needed. Diet: Heart healthy and carb consistent diet. Avoid salts, or foods with hidden salts such as canned or boxed foods and frozen dinners. Extra salt makes your heart work harder and traps the fluid in your body for longer. Special Instructions: Take all of your medications as directed and remember to keep all of your doctor's appointments and follow-up as needed. As discussed with you at bedside by neurologist, it appears that you have had a TIA and you are being discharged home on dual antiplatelet therapy with aspirin and Plavix for 21 days and will then remain on aspirin 81 mg daily indefinitely. It is recommended outpatient follow-up with your station operator at [facility] within the next week to discuss and schedule recommended event monitor placement. Your TSH was low, free T4 was not available at time of discharge recommend repeat thyroid function testing by your PCP at [facility]. Thank you for your service, it is always an honor to have the opportunity to participate in the care of a !! Thank you for allowing us to participate in your care, it was truly a pleasure having you for our patient!!! Discharge/Stand Alone Forms: Work/School Release Discharge Disposition: HOME SELF-CARE
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
--- NOTE | 2023-10-13 19:42 | MR ---
EXAMINATION TYPE: MR brain wo con DATE OF EXAM: 10/13/2023 COMPARISON: HISTORY: Dizziness and stroke like symptoms on Friday at 1400 CONTRAST: Performed utilizing mL intravenous gadolinium contrast. TECHNIQUE: Multiplanar, multiecho imaging on a 3.0 Hazel magnet is performed through the brain. Stud y is performed within 24 hours of arrival to the hospital. The craniovertebral junction is normal. The pituitary is normal. Diffusion-weighted imaging is performed. No abnormal hyperintensity is present to suggest an acute i ntracranial infarct or acute ischemic change. There are scattered punctate areas of hyperintensity on T2 and Inversion Recovery weighted sequences which are non-specific but can be related to chronic microvascular ischemic changes. Ventricles and sulci are appropriate for the patient age. There is some mild fluid through the bilateral mastoid air cells. Correlate for mild mastoiditis IMPRESSION: 1. Mild chronic appearing periventricular white matter ischemic type changes. 2. Clinical correlation recommended for bilateral mastoiditis
[2023-10-13] MEDS ORDERED: ATORVASTATIN 20 MG TAB PO SCH (21:00)
== END 2023-10-13 17:22 | disposition home or self-care (01) ==
LOC: EC 14:17 → 3SCARD 18:47
PROVIDERS: ADMIT Internal Medicine; ATTEND Internal Medicine
DX: G45.9 Transient cerebral ischemic attack, unspecified (principal); I10 Essential (primary) hypertension; R94.6 Abnormal results of thyroid function studies; H02.401 Unspecified ptosis of right eyelid; E78.1 Pure hyperglyceridemia; R73.9 Hyperglycemia, unspecified; D64.9 Anemia, unspecified; K21.9 Gastro-esophageal reflux disease without esophagitis; E66.9 Obesity, unspecified; Z87.891 Personal history of nicotine dependence; Z79.1 Long term (current) use of non-steroidal anti-inflammatories (NSAID); Z79.82 Long term (current) use of aspirin; Z79.899 Other long term (current) drug therapy; Z88.8 Allergy status to other drugs, medicaments and biological substances; Z91.030 Bee allergy status; Z82.3 Family history of stroke
CPT/HCPCS: 96372 ×2; 96375; 96361; 96374; 99285; 36415; 94760 ×2; 93005; 93306; 97161; 92610; 92523; 80061; 80053; 82550; 84443; 84484; 85025; 85610; 85730; 83036; 70496; 70450; 70498; 70551; G0378 ×3; J2060; J1200; J0780; J2405; J1650 ×2; J1885; Q9967

== ENCOUNTER → 2024-01-05 | Outpatient (CLI) | payer BC ==
[2024-01-05 20:38] LABS: ALT 24 U/L (10-49); AST 24 U/L (14-35); Albumin 4.1 g/dL (3.8-4.9); Albumin/Globulin Ratio 1.52 Ratio (1.60-3.17); Alkaline Phosphatase 110 U/L (41-126); BUN/Creat Ratio 17.75 Ratio (12.00-20.00); Blood Urea Nitrogen 21.3 mg/dL (9.0-27.0); Calcium 8.8 mg/dL (8.7-10.3); Carbon Dioxide 23.1 mmol/L (21.6-31.8); Chloride 106 mmol/L (96-109); Globulin 2.7 g/dL (1.6-3.3); Glucose 124 mg/dL (70-110); Sodium 141 mmol/L (135-145); Total Bilirubin 0.3 mg/dL (0.3-1.2); Total Protein 6.8 g/dL (6.2-8.2)
== END | disposition home or self-care (01) ==
LOC: LABWHC1 14:23
PROVIDERS: ATTEND Internal Medicine Cardiovascular Disease
DX: Z01.810 Encounter for preprocedural cardiovascular examination (principal); I10 Essential (primary) hypertension; G45.9 Transient cerebral ischemic attack, unspecified
CPT/HCPCS: 36415; 80053